=== PATIENT | male | born 1990 | race Caucasian/White ===

== ENCOUNTER 2017-06-23 22:59 | Emergency (ER) | payer SELFPAY, OTHER ==
[2017-06-24] MEDS: LIDOCAINE 1% (MDV) 20 ML INJ SC (02:00)
== END 2017-06-24 03:37 | disposition home or self-care (01) ==
LOC: FTE 22:59
DX: S61.412A Laceration without foreign body of left hand, initial encounter (principal); W26.8XXA Contact with other sharp object(s), not elsewhere classified, initial encounter; Y92.9 Unspecified place or not applicable
CPT/HCPCS: 12002; 99283-25

== ENCOUNTER 2017-06-26 14:39 | Emergency (ER) | payer MEDICAID | END 2017-06-26 16:24 | disposition home or self-care (01) | LOC: E/R 14:39 | DX: Z48.01 Encounter for change or removal of surgical wound dressing (principal) | CPT/HCPCS: 99281; Z7502 ==